=== PATIENT | male | born 1950 | race Caucasian/White ===

== ENCOUNTER 2020-01-31 20:34 | Inpatient (IN) | payer MEDICARE, OTHER ==
[~2020-01-31] VITALS: Ht 152.4 cm; Wt 100.0 kg
[2020-01-31 20:55] LABS: BASOPHILS 0.2 % (0-2); EOSINOPHILS 0.4 % (0-7); HEMATOCRIT 39.7 % (42.0-54.0); HEMOGLOBIN 13.1 g/dL (13.5-17.5); IMMATURE GRANULOCYTES 0.3 % (0-5); LYMPHOCYTES 9.7 % (15-50); MCH 29.2 pg (26.0-34.0); MCV 88.4 fL (80.0-100.0); MEAN PLATELET VOLUME 9.4 fL (7.4-10.4); MONOCYTES 5.1 % (2-11); NEUTROPHILS 84.3 % (40-80); PLATELET COUNT 342 10x3/uL (130-400); RBC 4.49 10x6/uL (4.20-6.10); RDW 13.5 % (11.5-14.5); WBC 13.8 10x3/uL (4.8-10.8)
[2020-01-31 21:03] LABS: APTT 27.4 SECONDS (22.8-39.4); INR 1.04 (0.85-1.17); PROTIME 13.5 SECONDS (11.6-15.0)
[2020-01-31 21:07] LABS: CALC OSMOLALITY 287 mosm/kg (275-300); CARBON DIOXIDE 23.4 mmol/L (21.0-32.0); CHLORIDE - SERUM 99 mmol/L (98-107); CREATININE - SERUM 2.7 mg/dL (0.6-1.3); GLUCOSE 222 mg/dL (74-106); SODIUM 138 mmol/L (136-145); UREA NITROGEN 27 mg/dL (7-18); eGFR NON AFRICAN AMERICAN 25 mL/min (90-120)
[2020-01-31 21:18] LABS: ALBUMIN 4.6 g/dL (3.4-5.0); ALKALINE PHOSPHATASE 70 U/L (30-120); ALT (SGPT) 47 U/L (10-68); BILIRUBIN - TOTAL 0.72 mg/dL (0.2-1.3); CKMB 6.4 U/L (0.0-3.6); CREATINE KINASE 542 UL (21-232); PROTEIN - SERUM 8.6 g/dL (6.4-8.2); THYROID STIMULATING HORMONE 3.97 uIU/mL (0.36-3.74)
[2020-01-31 21:23] LABS: TROPONIN-I < 0.017 ng/mL (0.000-0.060)
[2020-01-31 21:31] LABS: MAGNESIUM - SERUM 0.3 mg/dL (1.8-2.4)
[2020-01-31] MEDS ORDERED: GLUCOPHAGE500 MG PO (22:02)
[2020-01-31] MEDS ORDERED: GLUCOTROL ER2.5 MG PO (22:02)
[2020-01-31] MEDS ORDERED: LIPITOR10 MG PO (22:02)
[2020-01-31] MEDS ORDERED: OMEPRAZOLE20 M1 PO (22:02)
[2020-01-31] MEDS ORDERED: PROZAC10 MG PO (22:03)
--- NOTE | 2020-02-01 00:02 | NUR ---
CALLED [facility]O AND WAS TOLD THE PT DOES NOT QUALIFY FOR TPA D/T AMOUNT OF TIME SINCE LAST WELL KNOWN TIME
[2020-02-01 03:04] VITALS: Ht 152.4 cm; Wt 100.0 kg
[2020-02-01] MEDS ORDERED: CYMBALTA60 MG PO (03:20)
[2020-02-01] MEDS ORDERED: LYRICA75 MG PO (03:20)
[2020-02-01] MEDS ORDERED: GLUCOTROL 5 MG T5 MG PO (03:21)
[2020-02-01] MEDS ORDERED: VIAGRA25 MG PO (03:25)
[2020-02-01] MEDS ORDERED: BUPROPION XL300 MG PO (03:25)
[2020-02-01] MEDS ORDERED: GLUCOPHAGE1000 MG PO (03:27)
[2020-02-01] MEDS ORDERED: FLOMAX0.4 MG PO (03:27)
[2020-02-01] MEDS ORDERED: NITROSTAT0.4 MG SL (03:28)
[2020-02-01] MEDS ORDERED: COZAAR50 MG PO (03:29)
--- NOTE | 2020-02-01 03:30 | NUR ---
WHILE DOING THE PATIENT ADMISSION PATIENT WAS SPEAKING CLEARLY, ALERT AND ORIENTED. I HUNG THE PATIENTS SECOND MAG RIDER. PATIENT WAS TALKING TO ME ABOUT HIS BOATS AND FIXING CARS. CAN TO FLOOR AND FOR SOMETHING FOR HER TO EAT. I WENT BACK TO THE PATIENT ROOM WITH FOOD AND THE AND I WERE GOING OF HIS MED REC. PATIENT SPEECH BECAME SLURRED WHICH COMCERNED THE AND I HAS SHE SAID THAT WAS NOT NORMAL FOR HIM. I HAD THE PATIENT STICK HIS TONGUE OUT AND IT WAS NOT MIDLINE. PATIENT BEGAN COMPLAINING OF A SEVERE HEADACHE WHICH WAS HAD FOR HIS OR I TO UNDERSTAND WHAT HE WAS SAYING. NO SEAMING MACHINE OPERATOR STRENGTH ON THE LEFT. NO STRENGTH ON LEFT FOOT. AGAIN EXTREMELY CONCERNED THAT THIS WAS NOT NORMAL FOR HIM. CALLED AND SPOKE WITH IFEOMA INGRAM APN. NEW ORDERS GIVEN AND DOCUMENTED. [address]
[2020-02-01 04:00] VITALS: BP 128/82
[2020-02-01 04:00] LABS: BASOPHILS 0.1 % (0-2); EOSINOPHILS 0.4 % (0-7); HEMATOCRIT 36.5 % (42.0-54.0); HEMOGLOBIN 11.7 g/dL (13.5-17.5); IMMATURE GRANULOCYTES 0.3 % (0-5); LYMPHOCYTES 14.6 % (15-50); MCH 28.4 pg (26.0-34.0); MCHC 32.1 g/dL (31.0-37.0); MCV 88.6 fL (80.0-100.0); MEAN PLATELET VOLUME 9.6 fL (7.4-10.4); MONOCYTES 5.6 % (2-11); PLATELET COUNT 352 10x3/uL (130-400); RBC 4.12 10x6/uL (4.20-6.10); RDW 13.7 % (11.5-14.5)
[2020-02-01 04:24] LABS: WBC 7.9 10x3/uL (4.8-10.8)
[2020-02-01 04:46] LABS: CALCIUM 8.2 mg/dL (8.5-10.1); CARBON DIOXIDE 26.9 mmol/L (21.0-32.0); CHLORIDE - SERUM 102 mmol/L (98-107); CKMB 7.3 U/L (0.0-3.6); CREATINE KINASE 494 UL (21-232); CREATININE - SERUM 2.4 mg/dL (0.6-1.3); PHOSPHOROUS 3.7 mg/dL (2.5-4.9); POTASSIUM - SERUM 4.4 mmol/L (3.5-5.1); SODIUM 139 mmol/L (136-145); THYROID STIMULATING HORMONE 3.15 uIU/mL (0.36-3.74); UREA NITROGEN 28 mg/dL (7-18); eGFR NON AFRICAN AMERICAN 28 mL/min (90-120)
[2020-02-01 04:50] LABS: CALC OSMOLALITY 286 mosm/kg (275-300); GLUCOSE 158 mg/dL (74-106)
[2020-02-01 04:52] LABS: MAGNESIUM - SERUM 0.7 mg/dL (1.8-2.4); TROPONIN-I 0.145 ng/mL (0.000-0.060)
--- NOTE | 2020-02-01 05:23 | NUR ---
NOTIFIED IFEOMA INGRAM APN OF PATIENT CRITICAL MAGNESIUM LEVEL OF 0.7. NEW ORDERS CONTINUE TO FOLLOW MAGNESIUM PROTOCOL WITH THE EXCEPTION CHECK MAGNESIUM LEVEL ONE HOUR AFTER EACH SET.
--- NOTE | 2020-02-01 06:37 | NUR ---
PATIENT RESTING COMFORTABLY IN BED. RESPIRATIONS ARE EVEN AND UNLABORED. NO S/S OF DISTRESS. AT BEDSIDE. CALL LIGHT WITHIN REACH. WILL CPOC.
[2020-02-01 06:39] LABS: CHOL - HDL RATIO 2.9 ratio (2.3-4.9); LDL-HDL RATIO 1.6 ratio (1.5-3.5)
--- NOTE | 2020-02-01 07:00 | NUR ---
RECEIVED REPORT. ASSUMED CARE OF PATIENT. CALL LIGHT WITHIN REACH. PATIENT RESTING IN BED, AT BEDSIDE. LEFT SIDED WEAKNESS NOTED. LEFT SIDE DEVIATION WITH TONGUE NOTED. PATIENT SCHEDULED FOR MRI THIS AM. MAGNESIUM INFUSING ORDERED. BEDSIDE SHIFT REPORT COMPLETED, WHITE BOARD UPDATED.
[2020-02-01 09:02] VITALS: BP 137/78
[2020-02-01 09:29] LABS: ANION GAP 15.4 mmol/L (8-16); CALCIUM 8.2 mg/dL (8.5-10.1); CARBON DIOXIDE 23.5 mmol/L (21.0-32.0); CREATININE - SERUM 2.3 mg/dL (0.6-1.3); POTASSIUM - SERUM 3.9 mmol/L (3.5-5.1)
[2020-02-01 09:30] LABS: MAGNESIUM - SERUM 2.2 mg/dL (1.8-2.4)
--- NOTE | 2020-02-01 09:30 | NUR ---
PATIENT TO MRI VIA BED AT THIS TIME. NO DISTRESS.
--- NOTE | 2020-02-01 09:55 | NUR ---
PATIENT RETURNED FROM MRI. NO DISTRESS.
[2020-02-01 10:10] LABS: CKMB 13.9 U/L (0.0-3.6); CREATINE KINASE 610 UL (21-232)
--- NOTE | 2020-02-01 11:51 | NUR ---
SPEECH AT BEDSIDE FOR EVALUATION AT THIS TIME.
[2020-02-01 14:53] VITALS: BP 132/79
[2020-02-01 15:44] LABS: CREATINE KINASE 545 UL (21-232)
[2020-02-01 15:44] LABS: BILIRUBIN NEGATIVE (NEGATIVE); KETONE NEGATIVE (NEGATIVE); NITRITE NEGATIVE (NEGATIVE); UROBILINOGEN NORMAL (NORMAL)
[2020-02-01 15:45] LABS: TROPONIN-I 1.822 ng/mL (0.000-0.060)
[2020-02-01 15:53] LABS: UDS - AMPHET NEGATIVE QUAL (NEGATIVE); UDS - BARB NEGATIVE QUAL (NEGATIVE); UDS - BENZO NEGATIVE QUAL (NEGATIVE); UDS - COCAINE NEGATIVE QUAL (NEGATIVE); UDS - OPIATE NEGATIVE QUAL (NEGATIVE); UDS - PCP NEGATIVE QUAL (NEGATIVE); UDS - THC NEGATIVE QUAL (NEGATIVE)
--- NOTE | 2020-02-01 16:14 | NUR ---
TECH AT BEDSIDE FOR ECHO.
[2020-02-01 20:00] VITALS: BP 138/74
--- NOTE | 2020-02-01 22:55 | NUR ---
INITIALROUNDS COMPLETED AT 1915 HRS. PT DENIED ANY DISCOMFORT. ASSESSMENT COMPLETED AT 2024 HRS. VSS. ALERT AND ORIENTED TO PERSON,PLACE AND TIME. NAIDU. IV TO GREGORIA NS AT 125CC/HR. IV PATENT. O2 2LNC. LUNGS ESSENTIALLY CTA. NAIDU. PALPABLE PERIPHERAL PULSES. ABD LARGE WITH ACVTIVE BS NOTED. SPEECH CLEAR. SLIGHT L SIDED WEAKNESS NOTED. PM MEDS GIVEN WITHOUT DIFFICULTY. PT CURRENTLY RESTING WITH EYES CLOSED. RESP EVEN AND REGULAR. SR UP X2,CALL LIGHT WITHIN REACH.
--- NOTE | 2020-02-01 23:26 | NUR ---
PTRESTING WITH EYES CLOSED. RESP EVEN AND REGULAR. SR UP X1, CALL LIGHT WITHIN REACH.
[2020-02-02 00:01] VITALS: BP 128/72
--- NOTE | 2020-02-02 02:10 | NUR ---
PT RESTING WITH EYES CLOSED. RESP EVEN AND REGULAR. SR UP X2, CALL LIGHT WITHIN REACH.
[2020-02-02 04:00] VITALS: BP 113/62
--- NOTE | 2020-02-02 04:08 | NUR ---
NO CHANGE IN STATUS NOTED. SR UP X1,CALL LIGHT WITHIN REACH.
--- NOTE | 2020-02-02 06:13 | NUR ---
VSS THROUGHOUT NIGHT. PT DENIED ANY DISCOMOFRT. NEEDS MET; WILL CONTINUE TO MONITOR.
--- NOTE | 2020-02-02 07:00 | NUR ---
RECEIVED REPORT. ASSUMED CARE OF PATIENT. CALL LIGHT WITHIN REACH. PATIENT RESTING WITH EYES CLOSED, RESP EVEN AND UNLABORED. BEDSIDE SHIFT REPORT COMPLETE. WHITE BOARD UPDATED. NO DISTRESS.
[2020-02-02 08:00] VITALS: BP 129/96
--- NOTE | 2020-02-02 11:54 | NUR ---
ELECTROLYTE PROTOCOL INITIATED FOR MAGNESIUM AT THIS TIME.
[2020-02-02 12:00] VITALS: BP 161/94
[2020-02-02 16:00] VITALS: BP 163/88
--- NOTE | 2020-02-02 16:55 | NUR ---
EKG #1 COMPLETE AND SCANNED TO PATIENT CHART. DR. FERNANDEZ ON UNIT AND REVIEWED EKG.
[2020-02-02 17:27] LABS: CKMB 5.2 U/L (0.0-3.6); CREATINE KINASE 340 UL (21-232)
[2020-02-02 17:28] LABS: TROPONIN-I 1.187 ng/mL (0.000-0.060)
--- NOTE | 2020-02-02 19:08 | NUR ---
INITIAL ROUNDS COMPLETED. SHOWER DONE. PT DENIES ANY DISCOMFORT. CALL LIGHT WITHIN ERACH.
[2020-02-02 20:00] VITALS: BP 122/62
--- NOTE | 2020-02-02 20:26 | NUR ---
ASSESSMENT COMPLETED AT 1945 HRS. SR PER CM HR 78. ALERT AND ORIENTED TO PERSON, PLACE AND TME. NAIDU. SLIGHT L HAND WEAKNESS NOTED. IV TO LAC WITH NS AT 125CC/HR. IV PATENT. IV TO R HAND SL. LUNGS ESSENTIALLY CTA. PALPABLE PERIPHERAL PULSES. CALL LIGHT WITHIN REACH.
--- NOTE | 2020-02-02 22:14 | NUR ---
EKG DONE. PT DENIES ANY DISCOMFORT.
[2020-02-02 23:02] LABS: CKMB 3.6 U/L (0.0-3.6); CREATINE KINASE 287 UL (21-232)
[2020-02-02 23:03] LABS: TROPONIN-I 1.171 ng/mL (0.000-0.060)
--- NOTE | 2020-02-02 23:38 | NUR ---
PT AWAKES TO VERBAL STIMULI. DENIES ANY DISCOMFORT. CALL LIGHT WITHIN REACH.
[2020-02-03] VITALS: BP 137/67
--- NOTE | 2020-02-03 02:13 | NUR ---
PT RESTING WITH EYES CLOSED. RESP EVEN AND REGULAR. SR UP X1, CALL LIGHT WITHIN REACH.
--- NOTE | 2020-02-03 03:29 | NUR ---
PT RESTING WITH EYES CLOSED. RESP EVEN AND REGULAR. SR UP X1, CALL LIGHT WITHIN REACH.
[2020-02-03 04:00] VITALS: BP 124/67
--- NOTE | 2020-02-03 04:25 | NUR ---
0400 EKG DONE. PT DENIES ANY DISCOMFORT. NO CHANGE IN NEURO STATUS NOTED. CALL LIGHT WITHIN REACH.
--- NOTE | 2020-02-03 05:51 | NUR ---
VSS THROUGHOUT NIGHT. SR PER CM. PT DENIED ANY DISCOMFORT. NEEDS MET; WILL CONTINUE TO MONITOR
[2020-02-03 06:43] LABS: BASOPHILS 0.4 % (0-2); EOSINOPHILS 3.6 % (0-7); HEMATOCRIT 32.6 % (42.0-54.0); HEMOGLOBIN 10.3 g/dL (13.5-17.5); IMMATURE GRANULOCYTES 0.1 % (0-5); MCH 28.5 pg (26.0-34.0); MCHC 31.6 g/dL (31.0-37.0); MCV 90.1 fL (80.0-100.0); MEAN PLATELET VOLUME 9.6 fL (7.4-10.4); MONOCYTES 8.6 % (2-11); NEUTROPHILS 64.3 % (40-80); PLATELET COUNT 307 10x3/uL (130-400); RBC 3.62 10x6/uL (4.20-6.10); RDW 13.7 % (11.5-14.5); WBC 6.9 10x3/uL (4.8-10.8)
[2020-02-03 06:49] LABS: CALCIUM 7.6 mg/dL (8.5-10.1); CHLORIDE - SERUM 106 mmol/L (98-107); CKMB 2.2 U/L (0.0-3.6); CREATINE KINASE 238 UL (21-232); MAGNESIUM - SERUM 1.6 mg/dL (1.8-2.4); PHOSPHOROUS 3.3 mg/dL (2.5-4.9); POTASSIUM - SERUM 4.2 mmol/L (3.5-5.1); SODIUM 139 mmol/L (136-145)
[2020-02-03 06:55] LABS: CALC OSMOLALITY 279 mosm/kg (275-300); CREATININE - SERUM 1.7 mg/dL (0.6-1.3); GLUCOSE 123 mg/dL (74-106); TROPONIN-I 1.053 ng/mL (0.000-0.060); UREA NITROGEN 15 mg/dL (7-18); eGFR NON AFRICAN AMERICAN 42 mL/min (90-120)
--- NOTE | 2020-02-03 10:50 | NUR ---
PT UP WALKING IN BUTCHER WITH P.T. WITH WALKER.
--- NOTE | 2020-02-03 12:22 | NUR ---
Rehab Prescreening Consult recieved and the chart has been reviewed. He meets ARU criteria if he chooses to participate in the required therapy. Spoke to his CM Janine and informed her we could admit today id patient and the physician agree. Chelsey Ibrahim RN Clinical Liaison, Rehab
--- NOTE | 2020-02-03 13:20 | MORECARE ---
CASE MANAGEMENT DISCHARGE SUMMARY PATIENT: IRMA BARRETT UNIT: [id number] ADM DATE: 01/31/20 AGE: 70 : 48 SEX: M ROOM/BED: D.2108 AUTHOR: GLORY DELEON PHYSICIAN: REFERRING PHYSICIAN: ERIC VILLAFANA DO DATE OF SERVICE: 02/03/20 Discharge Plan Patient Name: IRMA BARRETT Facility: [facility]:[place] : 1950 Planned Disposition: Home Anticipated Discharge Date: Discharge Date: Expected LOS: Initial Reviewer: [id number] Initial Review Date: 02/03/2020 Generated: 02/03/20 2:19 pm DCPIA - Discharge Planning Initial Assessment Updated by [email or web address]: Janine Benítez on 02/03/20 1:18 pm * Is the patient Alert and Oriented? Yes * How many steps to enter\exit or inside your home? 0/0 * PCP Dr. Morris Duran in [place] * Preadmission Environment Home with Family * ADLs Independent * Equipment Cane CPAP Walker * Other Equipment DME for CPAP is [facility] * List name and contact numbers for known caregivers / representatives who currently or will assist patient after discharge: Chelsey Barrett - [facility] - [phone] * Verbal permission to speak to the caregivers and representatives has been obtained from the patient. Yes * Community resources currently utilized None * Additional services required to return to the preadmission environment? No * Can the patient safely return to the preadmission environment? Yes * Has this patient been hospitalized within the prior 30 days at any hospital? No Coverage Notice Reviewer: [id number] Benítez Notice Issued Date-Time: 02/03/2020 13:13 Notice Type: IM Discharge Notice Notice Delivered To: Patient Relationship to Patient: Self Network Internship Name: Delivery Method: HAND - Hand Delivered Aura Days: Prior Verbal Notification: Recipient Understood Notice: Yes Recipient Signature: Yes Med Rec Note Co-signed by Attending: Coverage Notice Comment: Reviewer: [id number] Benítez Notice Issued Date-Time: 02/03/2020 13:13 Notice Type: Patient Choice Letter Notice Delivered To: Patient Relationship to Patient: Self Network Internship Name: Delivery Method: HAND - Hand Delivered Aura Days: Prior Verbal Notification: Recipient Understood Notice: Yes Recipient Signature: Yes Med Rec Note Co-signed by Attending: Coverage Notice Comment: refusal for rehab or home health signed Patient Name: IRMA BARRETT Page [id number] at 1320 All edits/amendments must be made on the electronic document DICTATION DATE: 02/03/201318 COMMUNICATION COORDINATOR: MUKUND 02/03/201318 RPT#: [id number] DC DATE: STATUS: ADM IN [facility] [address] [place] [address] END OF REPORT
[2020-02-03 13:23] VITALS: BP 123/68
--- NOTE | 2020-02-03 13:27 | MORECARE ---
CASE MANAGEMENT DISCHARGE SUMMARY PATIENT: IRMA BARRETT UNIT: [id number] ADM DATE: 01/31/20 AGE: 70 : 48 SEX: M ROOM/BED: D.2109 AUTHOR: ADRIENNEDOC PHYSICIAN: REFERRING PHYSICIAN: ERIC VILLAFANA DO DATE OF SERVICE: 02/03/20 Discharge Plan Patient Name: IRMA BARRETT Facility: [facility]:[place] : 1950 Planned Disposition: Home Anticipated Discharge Date: Discharge Date: Expected LOS: Initial Reviewer: [id number] Initial Review Date: 02/03/2020 Generated: 02/03/20 2:26 pm Comments DCP- Discharge Planning Updated by [id number]: Janine Benítez on 02/03/20 12:[address] Patient Name: IRMA BARRETT Admission Status: ER Accout number: [id number] Admission Date: 01-31-2020 : 1950 Admission Diagnosis: Attending: ERIC VILLAFANA Current LOS: 3 Anticipated DC Date: Planned Disposition: Home Primary Insurance: MEDICARE A & B Discharge Planning Comments: CM met with patient and his spouse to complete initial dc planning assessment. CM educated patient on the CM role and verbal consent given by patient to complete assessment. Patient lives at home with his spouse. At discharge patient plans to return and feels this is a safe discharge. CM discussed availability of home health, rehab services, and medical equipment. Patient denied known discharge needs at this time. I informed them both that he also has the option of outpatient ST if he desires. He was also informed that [facility], with ST, thought he may make a good candidate for rehab. He declines at this time Declination for rehab and home health signed. CM will continue to follow and will assist as needed with dc plans/needs. Veneer Department Manager: Janine Benítez DCPIA - Discharge Planning Initial Assessment Updated by [email or web address]: Janine Benítez on 02/03/20 1:18 pm * Is the patient Alert and Oriented? Yes * How many steps to enter\exit or inside your home? 0/0 * PCP Dr. Morris Duran in [place] * Preadmission Environment Home with Family * ADLs Independent * Equipment Cane CPAP Walker * Other Equipment DME for CPAP is [facility]HP * List name and contact numbers for known caregivers / representatives who currently or will assist patient after discharge: Chelsey Barrett - [facility] - [phone] * Verbal permission to speak to the caregivers and representatives has been obtained from the patient. Yes * Community resources currently utilized None * Additional services required to return to the preadmission environment? No * Can the patient safely return to the preadmission environment? Yes * Has this patient been hospitalized within the prior 30 days at any hospital? No Coverage Notice Reviewer: [id number] Benítez Notice Issued Date-Time: 02/03/2020 13:13 Notice Type: IM Discharge Notice Notice Delivered To: Patient Relationship to Patient: Self Neck Skewer Name: Delivery Method: HAND - Hand Delivered Aura Days: Prior Verbal Notification: Recipient Understood Notice: Yes Recipient Signature: Yes Med Rec Note Co-signed by Attending: Coverage Notice Comment: Reviewer: [id number] Benítez Notice Issued Date-Time: 02/03/2020 13:13 Notice Type: Patient Choice Letter Notice Delivered To: Patient Relationship to Patient: Self Neck Skewer Name: Delivery Method: HAND - Hand Delivered Aura Days: Prior Verbal Notification: Recipient Understood Notice: Yes Recipient Signature: Yes Med Rec Note Co-signed by Attending: Coverage Notice Comment: refusal for rehab or home health signed Last DP export: 02/03/20 12:20 p Patient Name: IRMA BARRETT Page [phone] at 1327 All edits/amendments must be made on the electronic document DICTATION DATE: 02/03/20 1326 PARKS AND RECREATION WORKER: MUKUND 02/03/20 1326 RPT#: [id number] DC DATE: STATUS: ADM IN [address] [place] [address] END OF REPORT
--- NOTE | 2020-02-03 13:44 | NUR ---
I have reviewed this patient and I concur with the Shift Assessment completed by the Licensed Practical Nurse today this shift.
[2020-02-03 17:05] VITALS: BP 126/68
--- NOTE | 2020-02-03 19:32 | NUR ---
REPORT RECIEVED AND ROUNDING COMPLETE. PATIENT LAYING IN LOW FOWLERS, PATIENT REQUESTING A LARGE CUP OF ICE TO WHICH PATIENT RECIEVED. WEARING NASAL CANNULA WITH O2 AT 2L. PIV TO THE LEFT AC THAT IS PATENT AND RUNNING FLUIDS AT THIS TIME. NO DISTRESS NOTED, NO OTHER NEEDS VOICED, CALL LIGHT WITHIN REACH AND BED IN LOWEST LOCKED POSITION.
[2020-02-03 21:40] VITALS: BP 123/84
[2020-02-04] VITALS: BP 148/90
[2020-02-04 04:00] VITALS: BP 112/62
[2020-02-04 06:41] LABS: BASOPHILS 0.4 % (0-2); EOSINOPHILS 4.2 % (0-7); HEMATOCRIT 32.7 % (42.0-54.0); HEMOGLOBIN 10.2 g/dL (13.5-17.5); IMMATURE GRANULOCYTES 0.1 % (0-5); LYMPHOCYTES 20.5 % (15-50); MCH 28.2 pg (26.0-34.0); MCHC 31.2 g/dL (31.0-37.0); MCV 90.3 fL (80.0-100.0); MEAN PLATELET VOLUME 9.4 fL (7.4-10.4); NEUTROPHILS 66.8 % (40-80); PLATELET COUNT 292 10x3/uL (130-400); RBC 3.62 10x6/uL (4.20-6.10); RDW 13.4 % (11.5-14.5); WBC 7.2 10x3/uL (4.8-10.8)
[2020-02-04 07:45] LABS: ANION GAP 12.4 mmol/L (8-16); CARBON DIOXIDE 24.4 mmol/L (21.0-32.0); CREATININE - SERUM 1.5 mg/dL (0.6-1.3); MAGNESIUM - SERUM 1.8 mg/dL (1.8-2.4); PHOSPHOROUS 3.2 mg/dL (2.5-4.9); POTASSIUM - SERUM 4.8 mmol/L (3.5-5.1)
[2020-02-04 08:00] VITALS: BP 140/86
[2020-02-04] MEDS ORDERED: OMNICEF300 MG PO (13:34)
[2020-02-04] MEDS ORDERED: AZITHROMYCIN500 MG PO (13:34)
[2020-02-04] MEDS ORDERED: MUCINEX600 MG PO (13:35)
[2020-02-04] MEDS ORDERED: TESSALON PERLE100 MG PO (13:35)
[2020-02-04] MEDS ORDERED: ELIQUIS5 MG PO (13:38)
--- NOTE | 2020-02-04 14:11 | NUR ---
OT NOTE: PT PERFORMED VERY WELL. BED MOB INDEP; AMB IN ROOM AND TO BATHROOM WITH CGA. TOILETING INDEP; GROOMING AND FEEDING WITH SETUP. WANTS TO GO HOME TODAY. HOMERO MOLINA, OTR/L [phone]
--- NOTE | 2020-02-04 16:11 | MORECARE ---
CASE MANAGEMENT DISCHARGE SUMMARY PATIENT: IRMA BARRETT UNIT: [id number] ADM DATE: 01/31/20 AGE: 70 : 48 SEX: M ROOM/BED: D.7909 AUTHOR: GLORY DELEON PHYSICIAN: REFERRING PHYSICIAN: ERIC VILLAFANA DO DATE OF SERVICE: 02/04/20 Discharge Plan Patient Name: IRMA BARRETT Facility: [facility]:[place] : 1950 Planned Disposition: Home Anticipated Discharge Date: Discharge Date: Expected LOS: Initial Reviewer: [id number] Initial Review Date: 02/03/2020 Generated: 02/04/20 5:10 pm Comments DCP- Discharge Planning Updated by [id number]: Janine Jeyson on 02/04/20 3:[address] Received discharge orders. Patient would like outpatient therapy here at [facility] for PT/OT/ST. I faxed hand written signed order to [facility] outpatient PT. They have already left for the day and I left a voice mail to call patient with time and date of first appointment. Spouse is here to take home. DCP- Discharge Planning Updated by [id number]: Janine Jeyson on 02/03/20 12:[address] Patient Name: IRMA BARRETT Admission Status: ER Accout number: [id number] Admission Date: 01-31-2020 : 1950 Admission Diagnosis: Attending: ERIC VILLAFANA Current LOS: 3 Anticipated DC Date: Planned Disposition: Home Primary Insurance: MEDICARE A & B Discharge Planning Comments: CM met with patient and his spouse to complete initial dc planning assessment. CM educated patient on the CM role and verbal consent given by patient to complete assessment. Patient lives at home with his spouse. At discharge patient plans to return and feels this is a safe discharge. CM discussed availability of home health, rehab services, and medical equipment. Patient denied known discharge needs at this time. I informed them both that he also has the option of outpatient ST if he desires. He was also informed that [facility], with ST, thought he may make a good candidate for rehab. He declines at this time Declination for rehab and home health signed. CM will continue to follow and will assist as needed with dc plans/needs. Interactive Media Designer: Janine Benítez DCPIA - Discharge Planning Initial Assessment Updated by [email or web address]: Janine Benítez on 02/03/20 1:18 pm * Is the patient Alert and Oriented? Yes * How many steps to enter\exit or inside your home? 0/0 * PCP Dr. Morris Duran in [place] * Preadmission Environment Home with Family * ADLs Independent * Equipment Cane CPAP Walker * Other Equipment DME for CPAP is AHP * List name and contact numbers for known caregivers / representatives who currently or will assist patient after discharge: Chelsey Barrett - [facility] - [phone] * Verbal permission to speak to the caregivers and representatives has been obtained from the patient. Yes * Community resources currently utilized None * Additional services required to return to the preadmission environment? No * Can the patient safely return to the preadmission environment? Yes * Has this patient been hospitalized within the prior 30 days at any hospital? No External [facility]iders [facility] Next Contact Date: Service Request Date: Service Type: Resolution: Reviewer: Comments: Coverage Notice Reviewer: [email or web address] Ramiro Benítez Notice Issued Date-Time: 02/03/2020 13:13 Notice Type: IM Discharge Notice Notice Delivered To: Patient Relationship to Patient: Self Mascara Molder Name: Delivery Method: HAND - Hand Delivered Aura Days: Prior Verbal Notification: Recipient Understood Notice: Yes Recipient Signature: Yes Med Rec Note Co-signed by Attending: Coverage Notice Comment: Reviewer: [id number] Benítez Notice Issued Date-Time: 02/03/2020 13:13 Notice Type: Patient Choice Letter Notice Delivered To: Patient Relationship to Patient: Self Mascara Molder Name: Delivery Method: HAND - Hand Delivered Aura Days: Prior Verbal Notification: Recipient Understood Notice: Yes Recipient Signature: Yes Med Rec Note Co-signed by Attending: Coverage Notice Comment: refusal for rehab or home health signed Last DP export: 02/03/20 12:27 p Patient Name: IRMA BARRETT Page [phone] at 1611 All edits/amendments must be made on the electronic document DICTATION DATE: 02/04/20 1611 VISCOSE CELLAR WORKER: MUKUND 02/04/20 1611 RPT#: [id number] DC DATE: STATUS: ADM IN [facility] [address] [facility] [place] [address] END OF REPORT
--- NOTE | 2020-02-04 16:48 | NUR ---
OT NOTE: PT COMPLETED BED MOB SUPINE TO SIT WITH SBA. PT COMPLETED SIT TO STAND WITH SBA/CGA. PT COMPLETED EOB SITTING WITH SPV. PT COMPLETED UB HYGIENE WITH SETP. [id number] THANK YOU,NAVARRO WISE
--- NOTE | 2020-02-04 17:17 | NUR ---
PT DISCHARGED TO HOME VIA WHEELCHAIR, WITH AND ALL PERSONAL BELONGINGS.
--- NOTE | 2020-02-05 07:58 | EC ---
PATIENT:IMRA HOYOS DATE OF SERVICE: 01/31/20 SEX: M MEDICAL RECORD: [id number] DATE OF : [birth year] LOCATION:D.M2 D.210 AGE OF PATIENT: 70 ADMISSION DATE: 01/31/20 REFERRING PHYSICIAN: INTERPRETING PHYSICIAN: ELODIA BLAKE MD ECHOCARDIOGRAM REPORT ECHO CHARGES 4 ECHO COMPLETE Date: 02/01/20 CLINICAL DIAGNOSIS: SYNCOPE/DIZZINESS/HTN H/O CAD ECHOCARDIOGRAPHIC MEASUREMENTS (adult normal given) AC root (d.<3.7cm) 3.9 cm LV Septum d (<1.2 cm> 1.1 cm Valve Excursion 2.2 cm LV Septum (systole) 1.8 cm Left Atria (s.<4.0cm> 3.6 cm LVPW d(<1.2cm) 1.2 cm RV (d.<2.3cm) 2.7 cm LVPW (sytole) 1.8 cm LV diastole(<5.6CM) 5.5 cm MV E-F(>70mm/sec) cm LV systole 3.2 cm LVOT Diameter 2.0 cm MV exc.(>10mm) cm Est.ejection fraction (50-75%) % DOPPLER: LVIT cm/sec A 70.0 cm/sec E 91.0 cm/sec LA cm/sec RVSP 33.3 mmHg LVOT 124 cm/sec AOP1/2T m/s Asc. Ao 186 cm/sec RVOT 76.0 cm/sec RA cm/sec PA 107 cm/sec AV Gradient Peak 14.0 mmHg AV Mean 8.0 mmHg AV Area 2.0 cm MV Gradient Peak 4.5 mmHg MV Mean 1.7 mmHg MV Area cm COMMENTS: Quality Assurance Intern: 1 EVITA SHY Cardiovascular Lab Director: 3 Dr. Alberts TAPE# PACS Pericardial Effusion Y DATE OF SERVICE: Adequate 2D, color flow imaging, spectral Doppler, and M-Mode. Borderline LVH. LV internal dimension is normal. Wall motion is normal. EF is greater than or equal to 55%. Aortic valve is tricuspid. No evidence of stenosis by Doppler interrogation. Left atrium is normal at 3.6 cm. Mitral valve shows no prolapse. Trace MR. Right-sided chambers are grossly normal. Trace TR. ECHOCARDIOGRAM REPORT [id number] IRMA HOYOS TRANSINT:[id number] Voice Confirmation ID: [id number] DOCUMENT ID: [id number] ELODIA BLAKE MD at 0758 CC: [id number] DICTATION DATE: 02/02/20 1012 PHYSICAL MEDICINE PHYSICIAN: 02/02/201911 DIS IN 02/04/20 [facility] [address] [id number]
--- NOTE | 2020-02-05 09:19 | MORECARE ---
CASE MANAGEMENT DISCHARGE SUMMARY PATIENT: IRMA BARRETT UNIT: [id number] ADM DATE: 01/31/20 AGE: 70 : 46 SEX: M ROOM/BED: D.2107 AUTHOR: GLORY DELEON PHYSICIAN: REFERRING PHYSICIAN: ERIC VILLAFANA DO DATE OF SERVICE: 02/05/20 Discharge Plan Patient Name: IRMA BARRETT Facility: [facility]:[place] : 1950 Planned Disposition: Home Anticipated Discharge Date: Discharge Date: 02/04/2020 Expected LOS: Initial Reviewer: [email or web address] Initial Review Date: 02/03/2020 Generated: 02/05/20 10:18 am Comments DCP- Discharge Planning Updated by [email or web address]: Janine Benítez on 02/04/20 3:[address] Received discharge orders. Patient would like outpatient therapy here at [facility] for PT/OT/ST. I faxed hand written signed order to [facility] outpatient PT. They have already left for the day and I left a voice mail to call patient with time and date of first appointment. Spouse is here to take home. DCP- Discharge Planning Updated by [id number]: Janine Benítez on 02/03/20 12:[address] Patient Name: IRMA BARRETT Admission Status: ER Accout number: [id number] Admission Date: 01-31-2020 : 1950 Admission Diagnosis: Attending: ERIC VILLAFANA Current LOS: 3 Anticipated DC Date: Planned Disposition: Home Primary Insurance: MEDICARE A & B Discharge Planning Comments: CM met with patient and his spouse to complete initial dc planning assessment. CM educated patient on the CM role and verbal consent given by patient to complete assessment. Patient lives at home with his spouse. At discharge patient plans to return and feels this is a safe discharge. CM discussed availability of home health, rehab services, and medical equipment. Patient denied known discharge needs at this time. I informed them both that he also has the option of outpatient ST if he desires. He was also informed that [facility], with ST, thought he may make a good candidate for rehab. He declines at this time Declination for rehab and home health signed. CM will continue to follow and will assist as needed with dc plans/needs. Director Private: Janine Benítez DCPIA - Discharge Planning Initial Assessment Updated by [id number]: Janine Benítez on 02/03/20 1:18 pm * Is the patient Alert and Oriented? Yes * How many steps to enter\exit or inside your home? 0/0 * PCP Dr. Morris Duran in [place] * Preadmission Environment Home with Family * ADLs Independent * Equipment Cane CPAP Walker * Other Equipment DME for CPAP is AHP * List name and contact numbers for known caregivers / representatives who currently or will assist patient after discharge: Chelsey Barrett - [facility] - [phone] * Verbal permission to speak to the caregivers and representatives has been obtained from the patient. Yes * Community resources currently utilized None * Additional services required to return to the preadmission environment? No * Can the patient safely return to the preadmission environment? Yes * Has this patient been hospitalized within the prior 30 days at any hospital? No Coverage Notice Reviewer: [id number] Ramiro Benítez Notice Issued Date-Time: 02/03/2020 13:13 Notice Type: IM Discharge Notice Notice Delivered To: Patient Relationship to Patient: Self License And Permit Specialist Name: Delivery Method: HAND - Hand Delivered Aura Days: Prior Verbal Notification: Recipient Understood Notice: Yes Recipient Signature: Yes Med Rec Note Co-signed by Attending: Coverage Notice Comment: Reviewer: [email or web address] Ramiro Benítez Notice Issued Date-Time: 02/03/2020 13:13 Notice Type: Patient Choice Letter Notice Delivered To: Patient Relationship to Patient: Self License And Permit Specialist Name: Delivery Method: HAND - Hand Delivered Aura Days: Prior Verbal Notification: Recipient Understood Notice: Yes Recipient Signature: Yes Med Rec Note Co-signed by Attending: Coverage Notice Comment: refusal for rehab or home health signed Last DP export: 02/04/20 3:11 pm Patient Name: IRMA BARRETT Page [id number] at 0919 All edits/amendments must be made on the electronic document DICTATION DATE: 02/05/20917 SATELLITE SPECIALIST: MUKUND 02/05/20917 RPT#: [id number] DC DATE:02/04/20 STATUS: DIS IN [place] [address] [place] [address] END OF REPORT
== END 2020-02-04 17:00 | disposition home or self-care (01) | DRG 64 ==
LOC: D.ER 20:34 → D.M2 22:07
PROVIDERS: Family Medicine; ADMIT Family Medicine; ATTEND Family Medicine
DX: I63.541 Cerebral infarction due to unspecified occlusion or stenosis of right cerebellar artery (principal); J18.9 Pneumonia, unspecified organism; I21.4 Non-ST elevation (NSTEMI) myocardial infarction; N17.9 Acute kidney failure, unspecified; I69.354 Hemiplegia and hemiparesis following cerebral infarction affecting left non-dominant side; R27.8 Other lack of coordination; I63.531 Cerebral infarction due to unspecified occlusion or stenosis of right posterior cerebral artery; I10 Essential (primary) hypertension; I25.10 Atherosclerotic heart disease of native coronary artery without angina pectoris; E78.5 Hyperlipidemia, unspecified; K21.9 Gastro-esophageal reflux disease without esophagitis; N40.0 Benign prostatic hyperplasia without lower urinary tract symptoms; M19.90 Unspecified osteoarthritis, unspecified site; G47.33 Obstructive sleep apnea (adult) (pediatric); R55 Syncope and collapse; E83.42 Hypomagnesemia; E11.65 Type 2 diabetes mellitus with hyperglycemia; I48.91 Unspecified atrial fibrillation; R00.0 Tachycardia, unspecified